=== PATIENT | male | born 1965 | race Caucasian/White ===

== ENCOUNTER 2022-08-17 09:23 | Observation (INO) ==
--- NOTE | 2022-07-30 14:33 | PAT Medication Instructions ---
Medication Instructions Date of Service July 30, 2022 Home Medications alirocumab 75 mg/mL subcutaneous pen injector (Praluent Pen) 75 mg subcut Q14D aspirin 81 mg capsule 81 mg PO QAM clopidogrel 75 mg tablet 75 mg PO QAM esomeprazole magnesium 20 mg capsule,delayed release (Nexium) 20 mg PO DAILY PRN Heartburn krill oil 500 mg capsule 500 mg PO QAM metoprolol succinate 25 mg tablet,extended release 24 hr 25 mg PO QAM multivitamin 1 tab PO QAM ASK your prescriber and surgeon clopidogrel 75 mg tablet 75 mg PO QAM alirocumab 75 mg/mL subcutaneous pen injector (Praluent Pen) 75 mg subcut Q14D STOP taking 2 weeks before surgery krill oil 500 mg capsule 500 mg PO QAM DO NOT take the morning of surgery multivitamin 1 tab PO QAM Take morning of surgery With a small sip of water, OTHERWISE NOTHING TO EAT OR DRINK AFTER MIDNIGHT: aspirin 81 mg capsule 81 mg PO QAM (unless surgeon directed otherwise) esomeprazole magnesium 20 mg capsule,delayed release (Nexium) 20 mg PO DAILY PRN Heartburn (if needed) metoprolol succinate 25 mg tablet,extended release 24 hr 25 mg PO QAM Other Notes If you have any questions please call us at [phone] or [phone] or [phone] or [phone]
--- NOTE | 2022-08-03 14:36 | Anesthesiology Consultation ---
Date of Service August 03, 2022 Assessment & Plan (1) Encounter for pre-operative examination: - awaiting cardiology clearance. - Outpatient joint assessment: Patient is currently scheduled for inpatient pathway. If re-evaluated pending system levels during current pandemic/surgeon requests outpatient pathway, patient is not recommended candidate for outpatient joint program from anesthesia standpoint. Pt and surgeon's office made aware of this and needed cardiology clearance. Chart Review Chart Review: Pending: Refer to Additional Notes / Consult section and Patient seen in Pre Admission Testing Teaching & Discussion Pre-Anesthesia Teaching/Discussion Notes: Instructed NPO after midnight before surgery, except medications with 15 cc of water. Medication instructions pro vided according to the PAT guidelines. History Surgery Operation Date: 08/17/22 09:30 Proposed Procedures p Right Reversed Total Shoulder Arthroplasty - Jace Gonzalez MD Height/Weight Height: 5 ft 8 in Weight: 97.522 kg Allergies Allergy/AdvReac Type Severity Reaction Status Date / Time No Known Drug Allergies Allergy Unknown Verified 07/30/22 12:48 Kizibpo-HRG-AkB Reductase AdvReac Severe fibromyalgi Verified 07/30/22 12:53 Inhibitor a Medications Home Medications Medication Instructions Recorded Confirmed Last Taken alirocumab 75 mg/mL subcutaneous 75 mg subcut Q14D 07/30/22 07/30/22 Unknown pen injector (Praluent Pen) aspirin 81 mg capsule 81 mg PO QAM 07/30/22 07/30/22 Unknown clopidogrel 75 mg tablet 75 mg PO QAM 07/30/22 07/30/22 Unknown esomeprazole magnesium 20 mg 20 mg PO DAILY PRN Heartburn 07/30/22 07/30/22 Unknown capsule,delayed release (Nexium) krill oil 500 mg capsule 500 mg PO QAM 07/30/22 07/30/22 Unknown metoprolol succinate 25 mg 25 mg PO QAM 07/30/22 07/30/22 Unknown tablet,extended release 24 hr multivitamin 1 tab PO QAM 07/30/22 07/30/22 Unknown Past Medical History Medical History (Updated 08/03/22 @ 15:05 by Ching Chavis PA-C) CAD (coronary artery disease) 2006 (age 41 - first CABGx4) 08/2019 (cardiac cath and 3 stents + 3 more stents in 10/2019) 06/2020 (stents were replaced and then CABGx3 in 08/2020) Chronic back pain Degenerative disc disease Depression Hx Fatty liver History of COVID-February 2022- cold symptoms, took Paxlovid-no hospitalization- symptoms resolved Hyperlipidemia Mild heartburn controlled, stable per pt Myocardial Infarction 2006 (age 41 - first CABGx4) 08/2019 (cardiac cath and 3 stents + 3 more stents in 10/2019) 06/2020 (stents were replaced and then CABGx3 in 08/2020) Patient denies h/o stroke, seizures, DM, blood clots or blood transfusions. Exercise / Class Metabolic Activity III < 4 Walking/Shop/Light housework (denies chest discomfort or shortness of breath with usual activities) Past Family History Family History Other No family history of adverse response to anesthesia Past Surgical History Surgical History H/O arthroscopy of shoulder right H/O wrist surgery "bones removed from the right wrist" History of cardiac cath x5 total caths (10 stents) most done at [facility] and also [facility] History of colonoscopy History of coronary artery bypass graft x2 first (2006 at [facility]) CABG was x4 vessels second (08/19/20 [facility]) CABG was x3 vessels History of esophagogastroduodenoscopy (EGD) History of heart artery stent total of 10 stents History of repair of rotator cuff right multiple Hx of umbilical hernia repair June 2022 at [facility] S/P carpal tunnel release bilateral S/P epidural steroid injection lumbar S/P lumbar fusion L2-S1 fusion S/p total knee replacement, bilateral Past Anesthesia History No Hx of Anesthesia Complications and No Family Hx of Anesthesia Complications History of PONV No Hx of PONV and No Hx of Motion Sickness Social History Smoking Status: Never smoker tobacco type: smokeless tobacco Do You Dip or Chew Tobacco: Yes (1 can/5 days (advised)) Hx Alcohol Use: Yes Alcohol type: beer alcohol intake frequency: a few times a week Hx Substance Use: No substance use type: does not use Review of Systems Patient denies chest pain, shortness of breath, dyspnea on exertion, snoring, witnessed apneas, fever, chills, cough, wheezing, or palpitations. Physical Exam Vital Signs Vitals BP 121/79 P 76 TEMP 98.2 SP02 97% on RA RESP 18 Physical Full cervical extension range of motion without pain TMD 3.5 finger breadths Mallampati Score 3 Dentition: several crowns; denies chipped or loose teeth, caps, implants or bridges Lungs: normal respiratory effort. Clear throughout to auscultation, no adventitious breath sounds Cardiac: regular rate and rhythm, no murmurs noted Carotid arteries: negative bruit bilat Lab Results Anesthesia Preop Results Results Anesthesia Widget: PT 11.0 Seconds (9.0-12.0) 08/03/22 PTT 28.1 Seconds (21.0-31.0) 08/03/22 INR 1.0 (0.9-1.1) 08/03/22 HA1c 6.0 % (4.5-5.6) H 08/03/22 Blood Type B Positive 08/03/22 Antibody Screen NEGATIVE 08/03/22 Testing Laboratory Results 07/17/2022 WBC: 5.6 H/H: 16/46 PLATELETS: 221 SODIUM: 138 POTASSIUM: 4.1 CHLORIDE: 105 CO2: 26 BUN: 16 CREATININE: 0.8 GLUCOSE: 115 A1c: 5.9% Electrocardiogram Date: 06/16/22 Sinus bradycardia, rate 58 bpm Inferior PA Chest X-Ray Date: 08/03/22 Median sternotomy wires are unchanged. Calcified aortic knob is seen. The lungs are clear. No evidence of pleural effusion or pneumothorax. Posterior lumbar spine fixation hardware is seen. Degenerative changes are seen in the spine. IMPRESSION: No acute chest disease. Echocardiogram Date: 06/14/20 EF 50% Moderate to severe basal inferior/inferolateral wall hypokinesis Mildly thickened aortic valve leaflets Stress Test Date: 04/02/22 Pharmacologic EF 54% Mild septal hypokinesis Predominantly fixed defect involving the inferior wall and inferoseptal segments may represent artifact from an inferior GI/diaphragmatic interference or sequelae of remote infarct in this patient with significant history of CAD Transient ischemic dilation with TID of 1.2. This has been associated with severe balanced CAD COVID-19 Risk Screen Screening Information COVID-19 Screen Date: 08/03/22 Exposure 21 Days Family/Household +COVID Last 21 Days: No Exposure 10 Days Any COVID Exposure Last 10 Days: No Symptoms Last 10 Days Experienced COVID Sx Last 10 Days: No + COVID 0-90 Days COVID + in Last 0-90 Days: No
[~2022-08-17 09:23] MED LIST: ACETAMINOPHEN 500 MG TAB PO SCH; BUPIVACAINE 0.5 % 5 MG/1 ML PF 10ML VIAL ONE; CeleBREX 200 MG CAP PO SCH; FAMOTIDINE 20 MG TAB PO SCH; General Order Problem(s) SCH; LR 15ML/HR IV SCH; METOCLOPRAMIDE HCL 10 MG TABLET PO SCH; PREGABALIN 75 MG CAP PO SCH; TRANEXAMIC ACID 1,000 MG **IV Intra-op IV SCH; TRANEXAMIC ACID 1,000 MG **IV Pre-op IV SCH; ceFAZolin 2000MG 2,000 MG/15 ML SYR IV SCH; dexAMETHasone 4 MG TAB PO SCH
[2022-08-17] MEDS ORDERED: ROCURONIUM BROMIDE 10 MG/ML 5 ML VIAL IV ONE (11:06)
[2022-08-17] MEDS ORDERED: ONDANSETRON INJ 2 MG/ML 2 ML VIAL ONE (11:06)
[2022-08-17] MEDS ORDERED: fentaNYL citrate PF 100 MCG/2 ML VIAL ONE (11:06)
[2022-08-17] MEDS ORDERED: LIDOCAINE 2% MPF LOCAL 5 ML VIAL INFIL ONE (11:06)
[2022-08-17] MEDS ORDERED: MIDAZOLAM HCL 1 MG/ML 2ML VIAL ONE (11:06)
[2022-08-17] MEDS ORDERED: DEXAMETHASONE SOD INJ 4 MG/ML VIAL ONE (11:06)
[2022-08-17] MEDS ORDERED: PROPOFOL IV EMULSION 10 MG/ML 20 ML VIAL IV ONE (11:06)
--- NOTE | 2022-08-17 11:26 | History & Physical Report ---
Date of Service August 17, 2022 Assessment & Plan (1) Rotator cuff tear arthropathy of right shoulder: Plan: I have recommended proceeding with a right reverse total shoulder replacement. I explained the risk benefits and alternatives to him and he has consented to proceed. History of Present Illness Chief Complaint: Right shoulder pain and dysfunction due to rotator cuff tear arthropathy Primary Care Provider: John Andrade is a 57-year-old male with for right shoulder surgeries previously. Evaluation recently by x-ray and MRI confirmed rotator cuff tear arthropathy. Due to continued pain and dysfunction I recommended proceeding with a reverse total shoulder replacement. Allergies Allergy/AdvReac Type Severity Reaction Status Date / Time [id number] Reductase AdvReac Severe fibromyalgi Verified 08/17/22 09:57 Inhibitor a Home Medications Medication Instructions Recorded Confirmed Type alirocumab 75 mg/mL subcutaneous 75 mg subcut Q14D 07/30/22 08/17/22 History pen injector (Praluent Pen) aspirin 81 mg capsule 81 mg PO QAM 07/30/22 08/17/22 History clopidogrel 75 mg tablet 75 mg PO QAM 07/30/22 08/17/22 History esomeprazole magnesium 20 mg 20 mg PO DAILY PRN Heartburn 07/30/22 08/17/22 History capsule,delayed release (Nexium) krill oil 500 mg capsule 500 mg PO QAM 07/30/22 08/17/22 History metoprolol succinate 25 mg 25 mg PO QAM 07/30/22 08/17/22 History tablet,extended release 24 hr multivitamin 1 tab PO QAM 07/30/22 08/17/22 History Past Med/Surg History Medical History (Updated 08/17/22 @ 11:25 by Jace Gonzalez MD) CAD (coronary artery disease) 2006 (age 41 - first CABGx4) 08/2019 (cardiac cath and 3 stents + 3 more stents in 10/2019) 06/2020 (stents were replaced and then CABGx3 in 08/2020) Chronic back pain Degenerative disc disease Depression Hx Fatty liver History of COVID-February 2022- cold symptoms, took Paxlovid-no hospitalization- symptoms resolved Hyperlipidemia Mild heartburn controlled, stable per pt Myocardial Infarction 2006 (age 41 - first CABGx4) 08/2019 (cardiac cath and 3 stents + 3 more stents in 10/2019) 06/2020 (stents were replaced and then CABGx3 in 08/2020) Surgical History H/O arthroscopy of shoulder right H/O wrist surgery "bones removed from the right wrist" History of cardiac cath x5 total caths (10 stents) most done at [facility] and also [facility] History of colonoscopy History of coronary artery bypass graft x2 first (2006 at [facility]) CABG was x4 vessels second (08/19/20 [facility]) CABG was x3 vessels History of esophagogastroduodenoscopy (EGD) History of heart artery stent total of 10 stents History of repair of rotator cuff right multiple Hx of umbilical hernia repair June 2022 at [facility] S/P carpal tunnel release bilateral S/P epidural steroid injection lumbar S/P lumbar fusion L2-S1 fusion S/p total knee replacement, bilateral Family History Other No family history of adverse response to anesthesia Social History Smoking Status: Never smoker Second Hand Exposure: No; Do You Dip or Chew Tobacco: Yes (1 can/5 days (advised)); Tobacco Cessation Education Requested by Patient: No Hx Alcohol Use: Yes Alcohol type: beer Hx Substance Use: No Preferred Language: Lithuanian Communication Ability: Effective Wheelage Clerk Required: No Beliefs That Will Affect Care: None Current Living Situation: Alone Other Information That Helps Us Care for You: No Feels Safe at Home: Yes Safety Concerns: Feels Safe At This Time Assistive Devices: Glasses Physical Exam Constitutional: Well-developed, well-nourished, no acute distress Eyes: Pupils are equal and reactive to light ENMT: Ears nose and mouth are clear Neck: Supple with no masses Respiratory: Clear to auscultation Cardiovascular: Regular rate and rhythm Gastrointestinal (Abdomen): Soft nontender Musculoskeletal: Right shoulder decreased range of motion and crepitus. Diffusely tender. Skin: Well-healed surgical incisions over right shoulder. Neurologic: Radial median and ulnar nerves are intact. Results & Data Results & Data ([facility]) Vital Signs (Past 12 Hours) Vital Signs Temp Pulse Resp BP Pulse Ox O2 Del Method 08/17/22 10:02 36.7 C 60 20 132/82 97 Room Air Code Status & VTE Plan VTE Prophylaxis Plan VTE Prophylaxis will be ordered: Yes
[2022-08-17] MEDS ORDERED: Nursing to Pharmacy Communication SCH (11:30)
[2022-08-17] MEDS ORDERED: PHENYLEPHRINE 100MCG/ML 5ML SYR ONE (13:31)
[2022-08-17] MEDS ORDERED: ePHEDrine sulfate 50 MG/ML AMP ONE (13:58)
--- NOTE | 2022-08-17 14:15 | Post Operative Brief Note ---
Immediate Post Op Note v1 Date of Surgery August 17, 2022 Pre & Post Diagnosis Operation Date: 08/17/22 11:30 Pre-Op Diagnosis: Right Shoulder Osteoarthritis Post-Op Diagnosis: Right Shoulder Osteoarthritis I identified the patient and participated in the time-out.: Yes Procedure Operation Date: 08/17/22 11:30 Actual Procedures p Right Reversed Total Shoulder Arthroplasty(Right) - Jace Gonzalez MD Surgeon Jace Gonzalez MD Learning Design Specialist Belgica Mendiola PA-C Estimated Blood Loss 40 Findings Consistent with Post-Op Diagnosis Right shoulder rotator cuff tear arthropathy Anesthesia Type General Regional Complications No complications
--- NOTE | 2022-08-17 14:18 | Operative Report ---
Post Operative Report Pre & Post Diagnosis Operation Date: 08/17/22 11:30 Pre-Op Diagnosis: Right Shoulder Osteoarthritis Post-Op Diagnosis: Right Shoulder Osteoarthritis I identified the patient and participated in the time-out.: Yes Procedure Operation Date: 08/17/22 11:30 Actual Procedures p Right Reversed Total Shoulder Arthroplasty(Right) - Jace Gonzalez MD Surgeon Jace Gonzalez MD Online Marketing Coordinator Belgica Mendiola PA-C Estimated Blood Loss 40 Findings Consistent with Post-Op Diagnosis Right shoulder rotator cuff tear arthropathy Specimens Right proximal humerus bone and cartilage Drains No drains Anesthesia Type General Regional Complications No complications Indications Omer is a 57-year-old male with right shoulder pain and weakness for several years. He is status post for right shoulder surgeries. Evaluation by clinical exam x-ray and MRI confirmed rotator cuff tear arthropathy. I recommended a reverse total shoulder replacement. I explained the risk benefits and alternatives to him and he consented to proceed. Description of Procedure Implants: Arthrex apex 10 mm short stem with a 36 mm cup 2 mm posterior offset and a 36 x 3 mm polyethylene. 24 mm x +4 mm baseplate. 1 central to peripheral locking screws. 36 mm x +4 mm glenosphere. Procedure: The patient was taken to the operating room. After verifying their identity and the surgical site they were placed in the beachchair position. All extremities were well-padded. The operative shoulder was sterilely prepped and draped in the usual fashion. A 4 inch incision was made anteriorly just lateral to the coracoid process and carried towards the axillary folds. The deltopectoral interval was identified and the cephalic vein and deltoid muscle were retracted laterally. A deep self-retaining retractor was placed. The capsule was exposed. The subscapularis was elevated off of the proximal humerus and tagged for later repair. The humeral head was exposed and recut at the anatomic neck. The humerus was reamed sequentially until appropriate cortical contact was identified. The trial component was placed in 30 degrees of retrov ersion. Retractors were placed to expose the glenoid. The remaining labral tissue including the biceps anchor was removed. The central pin was placed and the glenoid was reamed. The baseplate was impacted into place with 1 central and 2 peripheral locking screws. The glenosphere was impacted into place into the correct orientation and securely tested with a large clamp. Polyethylene components were trialed until an appropriately sized trial was identified that had full range of motion, good stability, good deltoid tension, and no signs of impingement. The trial humerus components were removed and the final components assembled and impacted into place. 30 degrees of retroversion was utilized. After reduction once again there was good range of motion, good stability, appropriate deltoid tension, and no signs of impingement. The joint was thoroughly irrigated. The subscapularis was repaired to the proximal humerus. The rotator interval was closed distally if there was any supraspinatus tendon left. The remaining incision was closed with 0 Vicryl 2-0 Vicryl and kendall. A sterile Silverlon dressing was applied. The patient was placed in a shoulder immobilizer. The patient tolerated the procedure well and there were no intraoperative complications. Belgica Mendiola PA-C assisted in all aspects of the procedure including patient positioning, prepping and draping, manipulation of surgical instruments and retractors, wound closure, dressing placement, and compression wrap placement. I attest to the content of the Intraoperative Record and any orders documented therein. Any exceptions are noted below.
[2022-08-17] MEDS ORDERED: oxyCODONE HCL IR 5 MG TAB (IMMEDIATE RELEASE) PO PRN (14:19)
[2022-08-17] MEDS ORDERED: ONDANSETRON INJ 2 MG/ML 2 ML VIAL IV PRN (14:19)
[2022-08-17] MEDS ORDERED: NALOXONE HCL 0.4 MG/1 ML VIAL/CARP IV PRN (14:19)
[2022-08-17] MEDS ORDERED: GLYCOPYRROLATE 0.2 MG/ML VIAL ONE (14:26)
[2022-08-17] MEDS ORDERED: NEOSTIGMINE METHYLSULFATE 1 MG/ML 10ML VIAL ONE (14:26)
[2022-08-17] MEDS ORDERED: KETOROLAC 30 MG/ML VIAL IV SCH (14:30)
[2022-08-17] MEDS ORDERED: ALIROCUMAB 75 MG/ML SQ SCH (14:30)
[2022-08-17] MEDS ORDERED: KETOROLAC 30 MG/ML VIAL ONE (14:59)
--- NOTE | 2022-08-17 15:17 | Anesthesiology Progress Note ---
Date of Service August 17, 2022 Anesthesia Post Procedure Vital Signs Vital Signs: Temp Pulse Pulse Resp BP Pulse Ox O2 Del Method 08/17/22 15:05 83 14 104/74 94 Oxymask 08/17/22 14:55 96.8 F L 77 11 L 91/70 L 94 Oxymask 08/17/22 14:44 96.8 F L 84 16 125/80 93 Oxymask 08/17/22 10:02 98.1 F 60 20 132/82 97 Room Air O2 Flow Rate 08/17/22 15:05 6 08/17/22 14:55 6 08/17/22 14:44 6 08/17/22 10:02 Pain Intensity Right Shoulder: Pain Intensity: 3 Transfer of Care Handoff Completed per policy Notes Mental Status: alert / awake / arousable and participated in evaluation Patient Amnestic to Procedure: Yes Nausea / Vomiting: adequately controlled Pain: adequately controlled Airway Patency, RR, SpO2: stable & adequate BP & HR: stable & adequate Hydration State: stable & adequate Anesthetic Complications: no major complications apparent and Pt Satisfied with anesthetic care
[2022-08-17] MEDS ORDERED: PANTOprazole 40 MG TAB PO PRN (16:52)
[2022-08-17] MEDS: SODIUM CHLORIDE 0.9% 1000ML 1,000 ML IV SCH (17:01)
--- NOTE | 2022-08-17 17:33 | Hospitalist Consultation ---
Date of Consultation August 17, 2022 Assessment & Plan (1) Rotator cuff tear arthropathy of right shoulder: p Right Reversed Total Shoulder Arthroplasty(Right) - Jace Gonzalez MD EBL 40cc Pain management/bowel regimen per primary DVT proph -- ordered ASA BID w/ his usual plavix -- messaged primary about ASA/Plavix daily --> per Dr Gonzalez, Plavix not preventing DVT and wants patient to continue w/ asa bid as well PT/OT consults Messaged DR Gonzalez about possible d/c Toradol given ASA/plavix and significant cardiac history to prevent bleeding but may be ok short term --> defer to primary Monitor labs in AM Dispo per primary (2) CAD (coronary artery disease): extensive CAD history: CABG age 41, cath August 2019 w/ 3 stents and 3 mote in october 2019. In 2020, stents replaced and CABG x 3 in August [address] Andres Strickland Nuclear stress March 2022 w no reversible myocardial perfusion defects. Fixed defect involving infeior wall and inferoseptal segments may represent artifact from an inferior GI/diaphrag interference or sequelae of remote infact in patient w/ significant CAD. Transient ischemic dilation with TID 1.2, associated w/ severe balanced coronary artery disease. Mild septal hypokinesis, EF 54% Patient without chest pain/sob reported Remains on ASA/Plavix as above, ASA increased to BID for DVT proph Continues on Praluent, metoprolol. Review of medications and mentioned a possible lisinopril but was not on his medications and no prior fill of such, he thought the praluent might be for BP STRONGLY encouraged cessation from chewing tobacco, nicotine patch ordered EKG w/ CP F/u cardiology at d/c (3) H/O: HTN (hypertension): Continue metoprolol 25mg daily, Praluent for HLD (4) Tobacco chew use: nicotine patch STRONGLY ENCOURAGED CESSATION (5) Depression: patient states he takes sertraline 100mg daily, added to home medications and ordered to begin tomorrow mood stable at present (6) Pre-diabetes: A1c 6.0 pre-op labs Given his significant CAD, ideally should be on lisinopril/eze therapy as well as metformin/treatment of DM Will change to DM diet Steroids pre-op, will add SSI while inpatient and monitor BSGs (7) Mild heartburn: given pepcid pre-op, will schedule daily likely benefit from daily use for GI proph, no increased symptoms tobacco cessation encourage Plan Thank you for allowing hospitalist service to participate in the care of Mr Galvan. Hospitalist service will follow along in AM. Please call with any questions/concerns. Supervising Physician Co-Signing Physician Notes I personally saw and examined the patient. I verified all siddiqi points and agree w mika Laureano PA-C with the following exceptions and/or additions: 57 year old male POD#0 right total shoulder O/E no feeling yet back in his fingers and nor able to move his fingers, HS RRR, no murmurs, Chest CTAB, Abdo SNT A/P Pain/VTE/Bowel management per orthopedics No change to plan above History of Present Illness Reason for Consultation: med management Requesting Physician: Dr Gonzalez Attending Physician: Jace Gonzalez MD History of Present Illness 57yo male with PMHx significant for CAD (age 41, CABG x4, stent x3 +3 in 2019, stent replaced in 2020 with CABG x3/2020), HTN, HLD, GERD, chewing tobacco presented for RIGHT reverse total shoulder with Dr Gonzalez. Eval in room 314, friend at bedside, sitting at edge of bed finishing supper. No issues since surgery, does still have nerve block in place with numbness/tingling and inability to move extremity at this time. He states he does still currently chew tobacco, about 1 can every 2-3 days. Dis cussed STRONG modifiable risk factor that he should quit given his CAD. He denied need for nicotine patch initially but then decided he would take one and did note he needs to quit. Discussed can send for patches at [facility], strongly encouraged. He has hx of RA and previously on Enbrel and pregabalin but hasn't been on these medications for about 6 months due to cost. He also takes metoprolol 25mg da sabrina, Praluent 75mg every 2 weeks, sertraline 100mg daily in addition to aspirin/plavix. He denies any fever/chills, chest pain, shortness of breath, abdominal pain, nausea or vomiting. States no therapy for 6 weeks, and if having issues then will start PT outpatient. Questions/concerns addressed at this time. Allergies Allergy/AdvReac Type Severity Reaction Status Date / Time Upvufsf-UVU-XsP Reductase AdvReac Severe fibromyalgi Verified 08/17/22 09:57 Inhibitor a Home Medications Medication Instructions Recorded Confirmed Type alirocumab 75 mg/mL subcutaneous 75 mg subcut Q14D 07/30/22 08/17/22 History pen injector (Praluent Pen) aspirin 81 mg capsule 81 mg PO QAM 07/30/22 08/17/22 History clopidogrel 75 mg tablet 75 mg PO QAM 07/30/22 08/17/22 History esomeprazole magnesium 20 mg 20 mg PO DAILY PRN Heartburn 07/30/22 08/17/22 History capsule,delayed release (Nexium) krill oil 500 mg capsule 500 mg PO QAM 07/30/22 08/17/22 History metoprolol succinate 25 mg 25 mg PO QAM 07/30/22 08/17/22 History tablet,extended release 24 hr multivitamin 1 tab PO QAM 07/30/22 08/17/22 History sertraline 100 mg tablet 100 mg PO DAILY 08/17/22 08/17/22 History Patient History Medical History (Updated 08/17/22 @ 18:07 by Belgica Laureano PA-C) CAD (coronary artery disease) 2006 (age 41 - first CABGx4) 08/2019 (cardiac cath and 3 stents + 3 more stents in 10/2019) 06/2020 (stents were replaced and then CABGx3 in 08/2020) Chronic back pain Degenerative disc disease Depression Hx Fatty liver History of COVID-February 2022- cold symptoms, took Paxlovid-no hospitalization- symptoms resolved Hyperlipidemia Mild heartburn controlled, stable per pt Myocardial Infarction 2006 (age 41 - first CABGx4) 08/2019 (cardiac cath and 3 stents + 3 more stents in 10/2019) 06/2020 (stents were replaced and then CABGx3 in 08/2020) Surgical History H/O arthroscopy of shoulder right H/O wrist surgery "bones removed from the right wrist" History of cardiac cath x5 total caths (10 stents) most done at [facility] and also [facility] History of colonoscopy History of coronary artery bypass graft x2 first (2006 at formerly [facility]) CABG was x4 vessels second (08/19/20 [facility]) CABG was x3 vessels History of esophagogastroduodenoscopy (EGD) History of heart artery stent total of 10 stents History of repair of rotator cuff right multiple Hx of umbilical hernia repair June 2022 at [facility] [place] S/P carpal tunnel release bilateral S/P epidural steroid injection lumbar S/P lumbar fusion L2-S1 fusion S/p total knee replacement, bilateral Family History Other No family history of adverse response to anesthesia Social History Smoking Status: Never smoker Second Hand Exposure: No; Do You Dip or Chew Tobacco: Yes (1 can/5 days (advised)); Tobacco Cessation Education Requested by Patient: No Hx Alcohol Use: Yes Alcohol type: beer Hx Substance Use: No Preferred Language: Ghanaian Communication Ability: Effective Senior Chemist Required: No Beliefs That Will Affect Care: None Current Living Situation: Alone Other Information That Helps Us Care for You: No Feels Safe at Home: Yes Safety Concerns: Feels Safe At This Time Assistive Devices: Glasses Review of Systems Review of Systems: All systems reviewed & are unremarkable except as noted in HPI & below Physical Exam Physical Exam: General: WD male sitting up in bed finishing supper, NAD, friend at bedside HEENT: head normocephalic, atraumatic, mmm, trachea midline chest: prior stenotomy scar Resp: CTA, bibasilar crackles, no w/c, on room air CV: regular rate/rhtyhm, +murmur, no r/g, no pitting edema GI: +BS, NT : no perez MSK/Neuro: sling to RUE, silverlon dressing c/d/i, nontender to palpation nerve block in place, sensation not intact to fingers/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, +pulses Psych: alert, oriented x 3, cooperative with exam Skin: cool, dry Results & Data Results & Data ([facility]) Vital Signs (Past 12 Hours) Vital Signs Temp Pulse Pulse Resp BP Pulse Ox O2 Del Method 08/17/22 16:20 36.5 C 71 16 100/62 95 Nasal Cannula 08/17/22 16:50 36.6 C 74 16 105/62 96 Room Air 08/17/22 16:15 36.2 C L 70 15 97/58 L 95 Nasal Cannula 08/17/22 16:00 36.2 C L 79 11 L 90/75 L 93 Nasal Cannula 08/17/22 15:45 36.2 C L 84 19 112/89 95 Nasal Cannula 08/17/22 15:30 36.2 C L 72 14 103/65 93 Nasal Cannula 08/17/22 15:15 36.2 C L 81 16 105/76 94 Nasal Cannula 08/17/22 15:05 83 14 104/74 94 Oxymask 08/17/22 14:55 36.0 C L 77 11 L 91/70 L 94 Oxymask 08/17/22 14:44 36.0 C L 84 16 125/80 93 Oxymask 08/17/22 10:02 36.7 C 60 20 132/82 97 Room Air O2 Flow Rate 08/17/22 16:20 2 08/17/22 16:50 08/17/22 16:15 2 08/17/22 16:00 2 08/17/22 15:45 2 08/17/22 15:30 2 08/17/22 15:15 2 08/17/22 15:05 6 08/17/22 14:55 6 08/17/22 14:44 6 08/17/22 10:02 Laboratory Results 08/17/22 Range/Units Unknown SARS-CoV-2, RNA, NAAT NEGATIVE (NEGATIVE) PG Care Time/CCT Total # of Minutes Spent Total Time Spent with Patient: Total time spent is greater than 50% in coordination of care (as documented) at patient's floor/unit and/or counseling patient: Coding Level of Care Code 82414 IN/OBS CONSULT LVL 3,45M Diagnoses Rotator cuff tear arthropathy of right shoulder M75.101; M12.811 CAD (coronary artery disease) I25.10 H/O: HTN (hypertension) Z86.79 Tobacco chew use Z72.0 Depression F32.A Pre-diabetes R73.03 Mild heartburn R12
[2022-08-17] MEDS ORDERED: GLUCOSE 40% GEL 15 GM TUBE PO PRN (18:06)
[2022-08-17] MEDS ORDERED: CARBOHYDRATES FOR HYPOGLYCEMIA PO PRN (18:06)
[2022-08-17] MEDS ORDERED: GLUCOSE 10 TAB/TUBE PO PRN (18:06)
[2022-08-17] MEDS ORDERED: GLUCAGON FOR INJ 1 MG VIAL SQ PRN (18:06)
[2022-08-17] MEDS ORDERED: DEXTROSE 50% 50 ML SYRINGE IV PRN (18:06)
[2022-08-17] MEDS: NICOTINE 14 MG/24 HR PATCH TD SCH (18:24)
[2022-08-17] MEDS: ASPIRIN 81 MG CHEW PO SCH (19:56)
[2022-08-17] MEDS: ceFAZolin 2000MG 2,000 MG/15 ML SYR IV SCH (19:56)
[2022-08-17] MEDS: DOCUSATE SODIUM 100 MG CAP PO SCH (19:57)
[2022-08-17] MEDS: ACETAMINOPHEN 500 MG TAB PO SCH (22:24)
[2022-08-17] MEDS: INSULIN ASPART PER UNIT CHARGE SC SCH (22:24)
[2022-08-18] MEDS ORDERED: PHARMACY GLYCEMIC MGMT CONSULT PRN (02:47)
[2022-08-18] MEDS: SODIUM CHLORIDE 0.9% 1000ML 1,000 ML IV SCH (03:24)
[2022-08-18] MEDS ORDERED: INSULIN ASPART PER UNIT CHARGE SC SCH (04:00)
[2022-08-18] MEDS: ACETAMINOPHEN 500 MG TAB PO SCH (05:58)
[2022-08-18] MEDS: ceFAZolin 2000MG 2,000 MG/15 ML SYR IV SCH (05:58)
[2022-08-18 07:00] LABS: Basophils # (auto) 0.01 K/uL (0-0.2); Basophils % (auto) 0.1 %; Hematocrit (blood only) 36.8 % (42.0-52.0); Hemoglobin 12.7 g/dl (14.0-18.0); Immature Granulocytes # (auto) 0.05 K/uL (0.01-0.20); Immature Granulocytes % (auto) 0.4 %; Lymphocytes # (auto) 0.89 K/uL (1.2-3.4); Lymphocytes % (auto) 6.9 %; Mean Corpuscular Hemoglobin 31.1 pg (25.0-34.0); Mean Corpuscular Hgb Conc 34.5 g/dL (32.0-36.0); Mean Platelet Volume 9.7 fL (9.4-12.4); Monocytes % (auto) 5.5 %; Neutrophils # (auto) 11.18 K/uL (1.40-6.50); Neutrophils % (auto) 87.1 %; Platelet Count 198 K/uL (130-400); RDW Standard Deviation 39.1 fL (36.4-46.3); Red Blood Count 4.09 M/uL (4.70-6.10); White Blood Count 12.83 K/ul (4.8-10.8)
[2022-08-18 07:18] LABS: BUN Creatinine Ratio 15.7 (10-20); Calcium 8.6 mg/dl (8.5-10.1); Creatinine Clr Calc Pharmacy 102.8 ml/min; Est GFR (African American) 108.5 ml/min; Est GFR (Non-African American) 93.6 ml/min
[2022-08-18 08:02] VITALS: BP 136/74; PULSE 65; TEMP 98.1; O2SAT 98
--- NOTE | 2022-08-18 08:16 | Orthopedic Progress Note ---
Date of Service August 18, 2022 Assessment & Plan (1) Osteoarthritis of right shoulder: Plan: Pt is POD #1 from R reverse TSA -Pain regime as written -DVT ppx with ASA 81mg BID, TEDS, SCDs -Pt to be NWB to his RUE and keep sling in place at all times until f/u appo intment in 2 weeks. Silverlon dressing to remain in place for 1 week. Admission and Anticipated Discharge Date Admission Date: August 17, 2022 Subjective Pt is POD#1 from R reverse TSA -Pt doing well this morning, sitting up in chair at time of exam. -States pain is currently well controlled with pain regime -Denies CP, SOB, abdominal pain, N/V Review of Systems Review of Systems: All systems reviewed & are unremarkable except as noted in Subjective Physical Exam Physical Exam: RUE with Silverlon dressing in place, area is c/d/i. Sling in place. Pt able to wiggle fingers without issue, capillary refill less than 2 seconds, distal perfusion and sensation are grossly intact. Results & Data ([facility]) Vital Signs (Past 12 Hours) Vital Signs Temp Pulse Resp BP Pulse Ox O2 Del Method 08/18/22 08:02 36.7 C 65 16 136/74 98 Room Air 08/18/22 03:28 36.4 C L 78 18 121/72 94 Room Air 08/17/22 23:28 36.8 C 81 18 98/61 L 94 Room Air Laboratory Results Laboratory Results WBC 12.83 K/ul (4.8-10.8) H 08/18/22 06:15 RBC 4.09 M/uL (4.70-6.10) L 08/18/22 06:15 Hgb 12.7 g/dl (14.0-18.0) L 08/18/22 06:15 Hct 36.8 % (42.0-52.0) L 08/18/22 06:15 MCV 90.0 fL (80.0-100.0) 08/18/22 06:15 MCH 31.1 pg (25.0-34.0) 08/18/22 06:15 MCHC 34.5 g/dL (32.0-36.0) 08/18/22 06:15 RDW Std Deviation 39.1 fL (36.4-46.3) 08/18/22 06:15 RDW Coeff of Dasia 12.0 % (11.5-14.5) 08/18/22 06:15 Plt Count 198 K/uL (130-400) 08/18/22 06:15 MPV 9.7 fL (9.4-12.4) 08/18/22 06:15 Immature Gran % (Auto) 0.4 % 08/18/22 06:15 Neut % (Auto) 87.1 % 08/18/22 06:15 Lymph % (Auto) 6.9 % 08/18/22 06:15 Carroll % (Auto) 5.5 % 08/18/22 06:15 Eos % (Auto) 0.0 % 08/18/22 06:15 Baso % (Auto) 0.1 % 08/18/22 06:15 Neut # (Auto) 11.18 K/uL (1.40-6.50) H 08/18/22 06:15 Lymph # (Auto) 0.89 K/uL (1.2-3.4) L 08/18/22 06:15 Carroll # (Auto) 0.70 K/uL (0.11-0.59) H 08/18/22 06:15 Eos # (Auto) 0.00 K/uL (0-0.50) 08/18/22 06:15 Baso # (Auto) 0.01 K/uL (0-0.2) 08/18/22 06:15 Immature Gran # (Auto) 0.05 K/uL (0.01-0.20) 08/18/22 06:15 Sodium 138 mmol/L (136-145) 08/18/22 06:15 Potassium 4.0 mmol/L (3.5-5.1) 08/18/22 06:15 Chloride 105 mmol/L (98-107) 08/18/22 06:15 Carbon Dioxide 23 mmol/L (21-32) 08/18/22 06:15 Anion Gap 10 (3-11) 08/18/22 06:15 BUN 14 mg/dl (6-23) 08/18/22 06:15 Creatinine 0.89 mg/dl (0.6-1.4) 08/18/22 06:15 Est Cr Clr Drug Dosing 102.8 ml/min 08/18/22 06:15 Est GFR ( Amer) 108.5 ml/min 08/18/22 06:15 Est GFR (Non-Af Amer) 93.6 ml/min 08/18/22 06:15 BUN/Creatinine Ratio 15.7 (10-20) 08/18/22 06:15 Glucose 158 mg/dl (70-99(Fasting)) H 08/18/22 06:15 POC Glucose 188 mg/dl (70-99) H 08/18/22 08:03 Calcium 8.6 mg/dl (8.5-10.1) 08/18/22 06:15 SARS-CoV-2, RNA, NAAT NEGATIVE (NEGATIVE) 08/17/22 Unknown
[2022-08-18] MEDS: ASPIRIN 81 MG CHEW PO SCH (08:51)
[2022-08-18] MEDS: DOCUSATE SODIUM 100 MG CAP PO SCH (08:51)
[2022-08-18] MEDS: NICOTINE 14 MG/24 HR PATCH TD SCH (08:52)
[2022-08-18] MEDS: INSULIN ASPART PER UNIT CHARGE SC SCH (08:56)
[2022-08-18] MEDS ORDERED: SERTRALINE HCL 100 MG TABLET PO SCH (09:00)
[2022-08-18] MEDS ORDERED: METOPROLOL SUCC 25MG EXT REL TAB PO SCH (09:00)
[2022-08-18] MEDS ORDERED: FAMOTIDINE 20 MG in SYRINGE 3 ML IV SCH (09:00)
[2022-08-18] MEDS ORDERED: CLOPIDOGREL BISULFATE 75 MG TAB PO SCH (09:00)
--- NOTE | 2022-08-18 09:09 | Pharmacy Report ---
Pharmacy Glycemic Short Note 2 - Date of Service August 18, 2022 - Glycemic Short BSG Results (Last 24 hours): 08/17/22 08/18/22 08/18/22 20:30 06:06 06:15 Glucose 158 H POC Glucose 286 H 170 H 08/18/22 08:03 Glucose POC Glucose 188 H OUTPATIENT ANTIDIABETIC REGIMEN: * n/a * HbA1c: 6% (08/03/22) ASSESSMENT: * RH is a 57 year old male POD #1 s/p right reversed total shoulder arthroplasty * Received 8 mg PO dexamethasone and 4 mg IV dexamethasone in OR, no ongoing steroids ordered * Patient has history of prediabetes based on A1c, no antidiabetic medications as an outpatient * Pharmacy consulted for glycemic management overnight due to BSG of 286 mg/dL * Given A1c and no ongoing steroids, will hold off on basal insulin and utilize bolus insulin only PLAN FOR INPATIENT GLYCEMIC CONTROL: * Basal insulin * hold * Bolus insulin * NovoLog per scale ACHS or Q6hrs while NPO * Goal Range: Low 110 mg/dL - High 140 mg/dL * Correction Factor: 30 mg/dL/unit * Nutritional / Prandial insulin per carb ratio of 1 unit per 10 grams CHO consumed
--- NOTE | 2022-08-18 09:49 | Hospitalist Progress Note ---
Date of Service August 18, 2022 Assessment & Plan (1) Rotator cuff tear arthropathy of right shoulder: Plan: POD #1 Reversed Total Shoulder Arthroplasty(Right) - Jace Gonzalez MD EBL 40cc Pain management/bowel regimen per primary DVT proph - Ortho ordered ASA BID w/ his usual Plavix PT/OT following Dispo per primary (2) CAD (coronary artery disease): Plan: Extensive CAD hx - CABG age 41, cath August 2019 w/ 3 stents and 3 more in october 2019. 2020, stents replaced and CABG x 3 in August [address] Andres Strickland Nuclear stress March 2022 w no reversible myocardial perfusion defects. Fixed defect involving infeior wall and inferoseptal segments may represent artifact from an inferior GI/diaphrag interference or sequelae of remote infact in patient w/ significant CAD. Transient ischemic dilation with TID 1.2, associated w/ severe balanced coronary artery disease. Mild septal hypokinesis, EF 54% Patient without chest pain/sob reported Remains on ASA/Plavix as above, ASA increased to BID for DVT proph Continues on Praluent, metoprolol. Review of medications and mentioned a possible lisinopril but was not on his medications and no prior fill of such, he thought the praluent might be for BP STRONGLY encouraged cessation from chewing tobacco, nicotine patch ordered Discussed risks of continued nicotine abuse EKG w/ CP F/u cardiology at d/c (3) H/O: HTN (hypertension): Plan: BP stable 136/74 Continue metoprolol 25mg daily, Praluent for HLD (4) Tobacco chew use: Plan: nicotine patch STRONGLY ENCOURAGED CESSATION (5) Depression: Plan: patient states he takes sertraline 100mg daily, added to home medications and ordered mood stable at present (6) Pre-diabetes: Plan: A1c 6.0 pre-op labs (07/2022) Given his significant CAD, ideally should be on lisinopril/eze therapy as well as metformin/treatment of DM Will change to DM diet Steroids pre-op, will add SSI while inpatient and monitor BSGs Discussed DM diet, exercise and weight loss with patient (7) Mild heartburn: Plan: given pepcid pre-op, will schedule daily likely benefit from daily use for GI proph, no increased symptoms tobacco cessation encourage Plan Thank you for allowing hospitalist service to participate in the care of Mr Galvan. Per patient and ortho, patient being discharged to home later today. Discussed needs to follow up with PCP in 1-2 weeks Please call with any questions/concerns. Admission and Anticipated Discharge Date Admission Date: August 17, 2022 Subjective Patient is POD #1 Reversed total right shoulder arthroscopy and he was awake sitting up in recliner. He states he feels well and is ready to go home. He denies any chest pain, SOB or Dyspnea. He states he had 3 small BMs thus far today. Review of Systems Review of Systems: Patient denies any chest pain, SOB, nausea, vomiting, abdominal pain. All other ROS negative unless stated above. Physical Exam Constitutional: WD/WN, vitals as above Neck: trachea midline, no thyromegaly Respiratory: normal respiratory effort, lungs clear to auscultation Cardiovascular: Rate/Rhythm: regular rate and regular rhythm Gastrointestinal (Abdomen): normal bowel sounds, soft, nontender, no hepatosplenomegaly Psychiatric: A+Ox3, euthymic affect Results & Data Results & Data ([facility]) Vital Signs (Past 12 Hours) Vital Signs Temp Pulse Resp BP Pulse Ox O2 Del Method 08/18/22 09:10 36.7 C 65 16 136/74 98 08/18/22 08:02 36.7 C 65 16 136/74 98 Room Air 08/18/22 03:28 36.4 C L 78 18 121/72 94 Room Air 08/17/22 23:28 36.8 C 81 18 98/61 L 94 Room Air Laboratory Results Abnormal lab results 08/17/22 08/18/22 08/18/22 Range/Units 20:30 06:06 06:15 WBC 12.83 H (4.8-10.8) K/ul RBC 4.09 L (4.70-6.10) M/uL Hgb 12.7 L (14.0-18.0) g/dl Hct 36.8 L (42.0-52.0) % Neut # (Auto) 11.18 H (1.40-6.50) K/uL Lymph # (Auto) 0.89 L (1.2-3.4) K/uL Bibb # (Auto) 0.70 H (0.11-0.59) K/uL Glucose (70-99(Fasting)) mg/dl POC Glucose 286 H 170 H (70-99) mg/dl 08/18/22 08/18/22 Range/Units 06:15 08:03 WBC (4.8-10.8) K/ul RBC (4.70-6.10) M/uL Hgb (14.0-18.0) g/dl Hct (42.0-52.0) % Neut # (Auto) (1.40-6.50) K/uL Lymph # (Auto) (1.2-3.4) K/uL Bibb # (Auto) (0.11-0.59) K/uL Glucose 158 H (70-99(Fasting)) mg/dl POC Glucose 188 H (70-99) mg/dl PG Care Time/CCT Total # of Minutes Spent Total Time Spent with Patient: Total time spent is greater than 50% in coordination of care (as documented) at patient's floor/unit and/or counseling patient: Coding Level of Care Code 06241 SUB INP/OBS CARE 07/01MIN Diagnoses Rotator cuff tear arthropathy of right shoulder M75.101; M12.811 CAD (coronary artery disease) I25.10 H/O: HTN (hypertension) Z86.79 Tobacco chew use Z72.0 Depression F32.A Pre-diabetes R73.03 Mild heartburn R12
--- NOTE | 2022-08-26 14:02 | Discharge Summary ---
Date of Service August 26, 2022 Admission HPI Per Admitting Provider Raymond is a 57-year-old male with for right shoulder surgeries previously. Evaluation recently by x-ray and MRI confirmed rotator cuff tear arthropathy. Due to continued pain and dysfunction I recommended proceeding with a reverse total shoulder replacement. Principal Diagnosis Right shoulder rotator cuff arthropathy Discharge Exam RUE with Silverlon dressing in place, area is c/d/i. Sling in place. Pt able to wiggle fingers without issue, capillary refill less than 2 seconds, distal perfusion and sensation are grossly intact. Discharge Data Allergies Allergy/AdvReac Type Severity Reaction Status Date / Time Vslwgia-CUN-GoM Reductase AdvReac Severe fibromyalgi Verified 08/17/22 09:57 Inhibitor a Consultations 08/17/22 14:19 Consult Hospitalist Routine Procedures Performed Operation Date: 08/17/22 11:30 Actual Procedures p Right Reversed Total Shoulder Arthroplasty(Right) - Jace Gonzalez MD Ordered Studies 08/17/22 05:00 US - OR guided needle placemen Routine Hospital Course (1) Osteoarthritis of right shoulder: Pt is POD #1 from R reverse TSA -Pain regime as written -DVT ppx with ASA 81mg BID, TEDS, SCDs -Pt to be NWB to his RUE and keep sling in place at all times until f/u appointment in 2 weeks. Silverlon dressing to remain in place for 1 week. Total Time Total Time Spent Total Time Spent (In Minutes): 30 minutes Discharge Plan Discharge Items Patient Disposition: Home - Self-Care Reason For Visit: Right Shoulder Osteoarthritis Discharge Diagnosis: Right shoulder osteoarthritis Activity: Per Instructions section Weightbearing: Right non-weightbearing Non-emergency contact: Surgeon Call non-emergency contact if: your symptoms worsen, your temperature is above 101.5, your wound has increased redness, your wound has increased drainage and your wound pain has increased Follow-up/Referrals: Jace Gonzalez MD [Surgeon] - (follow up with Dr. Gonzalez or his PA in 2 weeks for your post-op check up ) John Wilson M.D. [Primary Care Provider] - Diet: Regular Addtl Attending Provider Instructions: ACTIVITY RECOMMENDATIONS: SELF CARE INSTRUCTIONS AFTER TOTAL SHOULDER ARTHROPLASTY REVERSE A. You may do daily exercises as taught in physical therapy while in hospital. No lifting with the operative arm. B. You are to wear your sling/immobilizer at all times EXCEPT when performing your daily exercises and for hygiene purposes. C. You may perform dry, daily dressing changes. Please keep your incision covered. You may shower 48 hours after surgery. Do not apply soap or any ointment/lotions directly over incision. Do not soak incision in bath tub/swimming pool. D. You may use ice as needed to operative shoulder. SPECIAL CARE INSTRUCTIONS: VERY IMPORTANT TO READ AND REVIEW A. There are a few signs you need to watch for after you are home. Call [facility] at [phone] if you experience any of the followin. Increased severe shoulder pain. Some pain is expected especially when you exercise. 2. Increased swelling in you shoulder or arm; pain or swelling in either upper extremity. 3. Any fluid drainage from the incision. 4. Shortness of breath or chest pain. B. Please call [facility] at [phone] if you have any questions or concerns about your operation or recovery. C. Call your physician if: 1. Temperature is greater than 101 degrees (F). 2. Pain is not relieved by prescribed pain medications. 3. Increase drainage or redness from incision. 4. Unanswered questions or concerns. D. Keep Silverlon dressing in place for 1 week. FOLLOW UP VISIT: Please call [facility] at [phone] to schedule a follow up appointment with Dr. Gonzalez or his PA in 12-14 days from your surgery date. Pending Studies at Discharge: No Stand-Alone Forms: My [facility], Pain - Opioid Pain Management, Smoking Cessation Medications and DC Order Prescriptions: New acetaminophen [Tylenol Extra Strength] 500 mg Tablet 1,000 mg PO Q8 30 Days Qty: 180 0RF aspirin [Children's Aspirin] 81 mg Tablet,Chewable 81 mg PO BID 30 Days Qty: 60 0RF Continued aspirin 81 mg Capsule 81 mg PO QAM clopidogrel 75 mg Tablet 75 mg PO QAM metoprolol succinate 25 mg Tablet Extended Release 24 Hr 25 mg PO QAM multivitamin Tablet 1 tab PO QAM Praluent Pen 75 mg/mL Pen Injector 75 mg SUBCUT Q14D esomeprazole magnesium [Nexium] 20 mg Capsule,Delayed Release(Dr/Ec) 20 mg PO DAILY PRN (Reason: Heartburn) sertraline 100 mg tablet 100 mg PO DAILY Discontinued krill oil 500 mg Capsule 500 mg PO QAM Discharge Orders: Discharge Order (Routine); Ordered 08/18/22 Ordered By: Trung Rubio/Other Patient Handouts: Using a Blood Sugar Log, Diabetes and Heart Disease, High Blood Sugar (Hyperglycemia), Managing Type 2 Diabetes, How to Check Your Blood Sugar, Understanding Carbohydrates, Diabetes: Keeping Feet Healthy, Diabetes Food Tips Ch, Diabetes: Meal Planning, Diabetes Carbs Fats Protein Admission Data Admit Date/Time: 08/17/22 14:19 Attending Provider: Jace Gonzalez Admit Provider: Jace Gonzalez Primary Care Provider: John Wilson Other Providers: Jeferson Almanza ; Jim Lugo ; Alban Mckay ; Huan Rothman Other Interventions: Discharge Summary Assessment (RN) Last Done: 08/18/22 09:10 Supervising Physician Co-Signing Physician Notes I personally saw and examined the patient. I verified all siddiqi points and agree with Belgica Laureano PA-C with the following exceptions and/or additions: 57 year old male POD#0 right total shoulder O/E no feeling yet back in his fingers and nor able to move his fingers, HS RRR, no murmurs, Chest CTAB, Abdo SNT A/P Pain/VTE/Bowel management per orthopedics No change to plan above
== END 2022-08-18 11:00 | disposition home or self-care (01) ==
LOC: 3E 09:23 → ASU 09:23